=== PATIENT | male | born 1970 | race Caucasian/White ===

== ENCOUNTER 2024-01-20 08:33 | Emergency (ER) | payer OTHER, SELFPAY ==
[2024-01-20 08:42] VITALS: BP 135/81; PULSE 93; RESP 20; TEMP 36.3; O2SAT 97
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
== END 2024-01-20 09:39 | disposition home or self-care (01) ==
PROVIDERS: Emergency Provider Registered Nurse
DX: J40 Bronchitis, not specified as acute or chronic (principal); F17.210 Nicotine dependence, cigarettes, uncomplicated; J44.9 Chronic obstructive pulmonary disease, unspecified; I10 Essential (primary) hypertension
CPT/HCPCS: 99203; G0463

== ENCOUNTER 2024-03-31 09:47 | Emergency (ER) | payer OTHER, SELFPAY ==
[2024-03-31 10:00] VITALS: BP 176/88; PULSE 70; RESP 16; TEMP 36.6; O2SAT 97
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
== END 2024-03-31 10:41 | disposition home or self-care (01) ==
PROVIDERS: Emergency Provider Registered Nurse
DX: K04.7 Periapical abscess without sinus (principal); F17.210 Nicotine dependence, cigarettes, uncomplicated; J44.9 Chronic obstructive pulmonary disease, unspecified; I10 Essential (primary) hypertension
CPT/HCPCS: 99213; G0463

== ENCOUNTER 2025-08-03 08:38 | Emergency (ER) | payer OTHER, SELFPAY ==
--- OUTSIDE RECORDS SUMMARY | 2001-02-05 08:15 | XMS_ITS | Continuity of Care Document ---
Author Organization [facility] Address [address] [place] [address] [address] [place] [address] Phone Care Team Providers Care Marketing Forecaster Name Role Phone Orion Hart Unavailable Unavailable Advance Directives Directive Yes / No Effective Date File Name No Information Encounters Encounter Description Practice Location Reason(s) For Visit Diagnoses Date Provider Providers Copied on Encounter [facility], [id number] [place] [address] [address], [place], [place], [id number], [place] tel:[phone] [facility] No Information 0 [phone] 1 Tanner Sears. [address] , [address], [place], [address], [place]. tel:[phone] Family History Family Member Type Diagnosis Age At Onset No Information Payers Payer name Insurance type Covered democrat ID Authoriza nicojillian(s) Keegan Ins Complete Auto WC [id number] Social History Type Description Quantity Date Captured Comments Sex Male Smoking Status No Information Chief Complaint And Reason For Visit No Information Reason For Referral Reason For Referral No Information History Of Present Illness Encounter Date Complaint History Of Prese nt Illness No Information Functional Status Date Functional Assessmen t No Information Instructions Date Instruction Additional Infor mation No Information Assessments Type Assessment Date No Information Patient Care Teams Name Effective Dates (start - stop) Status Members No Information
--- OUTSIDE RECORDS SUMMARY | 2001-02-05 08:15 | XMS_ITS | Continuity of Care Document ---
Author Organization [facility] Address [address] [place] [address] [address] [place] [address] Phone Care Team Providers Care Learning Support Aide Name Role Phone Orion Hart Unavailable Unavailable Advance Directives Directive Yes / No Effective Date File Name No Information Encounters Encounter Description Practice Location Reason(s) For Visit Diagnoses Date Provider Providers Copied on Encounter [facility], [id number] [place] [address] [address], [place], [place], [id number], [place] tel:[phone] [facility] No Information 0 [phone] 1 Tanner Sears. [address] , [address], [place], [address], [place]. tel:[phone] Family History Family Member Type Diagnosis Age At Onset No Information Payers Payer name Insurance type Covered republican ID Authoriza nicojillian(s) Keegan Ins Complete Auto WC [id number] Social History Type Description Quantity Date Captured [...]
--- OUTSIDE RECORDS SUMMARY | 2004-09-24 19:00 | XMS_ITS | Continuity of Care Document ---
Author Organization [facility] Address [address] [place] [phone] Phone Care Team Providers Care Revenue Settlements Administrator Name Role Phone Timbo Jensen MD Unavailable Unavailable Advance Directives Directive Yes / No Effective Date File Name No Information Encounters Encounter Description Practice Location Reason(s) For Visit Diagnoses Date Provider Providers Copied on [facility] [address] [place] [address], [place], [place], [id number] tel:[phone] [address] [place] [address] Gastroenterol ogy [facility] No Information Camila Izquierdo. [address] [place] [address], [id number] , [place]. tel:[phone] Referring Provider: Glenn Wilson MD, [address] [place] [address], [address] . tel:[phone] Family History Family Member Type Diagnosis Age At Onset No Information Payers Payer name Insurance type Covered constitution party ID Authoriza tion(s) No Information Social History Type Description Quantity Date Captured [...]
--- OUTSIDE RECORDS SUMMARY | 2004-09-24 19:00 | XMS_ITS | Continuity of Care Document ---
Author Organization [facility] Address [address] [place] [phone] Phone Care Team Providers Care Chin Strap Cutter Name Role Phone Timbo Jensen MD Unavailable Unavailable Advance Directives Directive Yes / No Effective Date File Name No Information Encounters Encounter Description Practice Location Reason(s) For Visit Diagnoses Date Provider Providers Copied on [facility], [address] [place] [address], [place], [place], [id number] tel:[phone] [address] [place] [address] Gastroenterol ogy [facility] No Information Camila Izquierdo. [address] [place] [address], [id number] , [place]. tel:[phone] Referring Provider: Glenn Wilson MD, [address] [place] [address], [id number] . tel:[phone] Family History Family Member Type Diagnosis Age At Onset No Information Payers Payer name Insurance type Covered republican ID Authoriza tion(s) No Information Social History [...]
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
[2025-08-03 08:44] VITALS: BP 137/88; PULSE 98; RESP 20; TEMP 36.5; O2SAT 98
--- OUTSIDE RECORDS SUMMARY | 2025-08-03 08:49 | XMS_ITS | Encounter Summary ---
Author Organization [facility] Address [address] [place] [address] Phone Care Team Providers Care Wheat Combine Driver Name Role Phone Cristal Stauffer APRN, CNP Unavailable [phone] Cristal Stauffer APRN, CNP Primary Care Provid er Andrés Fan MD Unavailable Zohreh Woodward PAC Primary Care Pro vider Reason for Visit * Reason Comments Medication Refill Encounter Details Date Type Department Care Team (Late st Contact Info) Description 09/02/2023 Refill [facility] - Family Medicine - [address] [place] [id number] Cristal Stauffer APRN, MARIAMA [address] [phone] Medication Refill Social History Tobacco Use Types Packs/Day Years Used Date Smoking Tobacco: Every Day Cigarettes 1 41.7 Started: 11/04/1983 Smokeless Tobacco: Never Alcohol Use Standard Drinks/Week Comments Not Currently 4 (1 standard drink = 0.6 oz pur e alcohol) AUDIT-C Answer Date Recorded Frequency of Alcohol Consumption Not on file 06/09/2020 Average Number of Drinks Not on file 020 Q3: How often do you have si x or more drinks on one occasion? 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 Omeprazole Dispensed Days Supply Quantity Provider Pharmacy OME[facility]OL [facility] 20MG CAP 08/28/2023 30 30 Capsule Cristal Stauffer APRN, CNP [email or web address] documented in this encounter Plan of Treatment Not on file documented as of this encounter Visit Diagnoses Diagnosis Alcoholic cirrhosis of liver without ascites Alcoholic cirrhosis of liver documented in this encounter Additional Health Concerns Assessment Noted Time PHQ-9 Depression Total Score: 0 01/16/20 23 7:00 AM CDT documented as of this encounter Care Teams Wheat Combine Driver Relationship Specialty Start Date End Date Cristal Stauffer APRN, MARIAMA #2 [facility] [address] [place] [phone] PCP - General Advanced Practice Nurse 06/07/20 09/06/23 Zohreh Woodward PAC #2 [facility] [address] [place] [address] PCP - General Physician Copy Writer 02/05/25 Cristal Stauffer APRN, CNP #2 [facility] [address] [place] [phone] Nurse Practitioner Advanced Practice Nurse 06/06/20 03/02/24 Andrés Fan MD #[address] [phone] Consulting Physician General Surgery 12/13/21 documented as of this encounter
--- OUTSIDE RECORDS SUMMARY | 2025-08-03 08:49 | XMS_ITS | Encounter Summary ---
Author Organization [facility] Address [address] [place] [address] Phone Care Team Providers Care Digital Camera Technician Name Role Phone Cristal Stauffer APRN, CNP Unavailable +- [phone] Cristal Stauffer APRN, CNP Primary Care Provid er Andrés Fan MD Unavailable Zohreh Woodward PAC Primary Care Pro vider Reason for Visit * Reason Onset Date Comments Cough 12/19/2022 shortness of breath 12/19/2022 Encounter Details Date Type Department Care Team (Late st Contact Info) Description 12/19/2022 [facility] [address] [place] [address] Cristal Stauffer APRN, BUILDING MAINTENANCE SUPERINTENDENT #[address] [phone] Cough; shortness of breath Social History Tobacco Use Types Packs/Day Years [...] Recorded Total Score - Questions 1-9 0 07/05 Sexually Active Control Partners Comments Not Currently Female Sex and Gender Information Value Date Recorded Sex Assigned at Not on file 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 Has been wheezing and is wheezing today. Does not have inhaler-has been out of the inhalers for 4 to 5 days.. Nebulizer treatments are not helping. Used it this am and it has not helped. Caller sounds short of breath on the phone. Took nyquil this am and he started to sweat and felt better. Has whitish mucus but hard to cough up the material. When he coughs he gets a headache. Wants an appointment for tomorrow in the am at the office R: Patient/caller refuses disposition of: GO to ED now Reiterated the importance of following recommendation as symptoms could indicate a serious or life-threatening situation Patient response:He does not want to wait in the ED and does not feel like going out at this time. Will call office in am for an appointment. Reason for Disposition ??? [1] MODERATE difficulty breathing (e.g., speaks in phrases, SOB even at rest, pulse 100-120) AND [2] still present when not coughing Protocols used: COUGH - ACUTE [id number] ICE PORTER documented in this encounter Plan of Treatment Not on file documented as of this encounter Visit Diagnoses Not on filedocumented in this encounter Additional Health Concerns Assessment Noted Time PHQ-9 Depression Total Score: 0 07/14/20 21 8:25 AM CDT documented as of this encounter Care Teams Digital Camera Technician Relationship Specialty Start Date End Date Cristal Stauffer APRN, BUILDING MAINTENANCE SUPERINTENDENT #[address] [phone] PCP - General Advanced Practice Nurse 06/07/20 09/06/23 Zohreh Woodward PAC #[address] [phone] PCP - General Physician Brim Welt Sewing Machine Operator 02/05/25 Cristal Stauffer APRN, BUILDING MAINTENANCE SUPERINTENDENT #[address] [phone] Nurse Practitioner Advanced Practice Nurse 06/06/20 03/02/24 Andrés Fan MD #[address] [phone] Consulting Physician General Surgery 12/13/21 documented as of this encounter
--- OUTSIDE RECORDS SUMMARY | 2025-08-03 08:49 | XMS_ITS | Encounter Summary ---
Author Organization [facility] Address [address] [place] [address] Phone Care Team Providers Care Insole And Outsole Splitter Name Role Phone Cristal Stauffer APRN, CNP Unavailable +- [phone] Cristal Stauffer APRN, CNP Primary Care Provid er Andrés Fan MD Unavailable Zohreh Woodward PAC Primary Care Pro vider Reason for Visit * Reason Comments Medication Refill Encounter Details Date Type Department Care Team (Late st Contact Info) Description 07/04/2021 Refill [facility] - Family Medicine - [place] [address] [place] [address] Michael Zuniga APRN, RUG SCRATCHER #[address] [address] Medication Refill Social History Tobacco Use Types Packs/Day Years Used Date Smoking Tobacco: Every Day Cigarettes 1.5 36.6 Started: 11/04/1983; Last attempted to quit: 06/07/2020 Smokeless Tobacco: Never Alcohol Use Standard Drinks/Week Comments Not Currently 18 (1 standard drink = 0.6 oz pu re alcohol) AUDIT-C Answer Date Recorded Frequency of Alcohol Consumption Not on file 06/09/2020 Average Number of Drinks Not on file 020 Q3: How often do you have si x or more drinks on one occasion? 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 No / Unsure 07/05/2021 8:14 AM CDT documented as of this encounter Miscellaneous Notes * Telephone Encounter - Mary Del Angel RN - 07/05/2021 3:58 PM CDT The original prescription was reordered on 07/04/2021 by Cristal Stauffer APN, RUG SCRATCHER. documented in this encounter Plan of Treatment Not on file documented as of this encounter Visit Diagnoses Diagnosis COPD with acute exacerbation Obstructive chronic bronchitis with exacerbation documented in this encounter Additional Health Concerns Infection Onset Date Last Indicated Resolved Time COVID - 19 10/23/2021 10/23/2021 11/12/2021 12:1 6 AM SOLE TRIMMER COVID - 19 Confirmed 10/23/2021 10/23/2021 022 12:16 AM SOLE TRIMMER Assessment Noted Time PHQ-9 Depression Total Score: 0 03/20/20 21 2:13 PM CDT documented as of this encounter Care Teams Insole And Outsole Splitter Relationship Specialty Start Date End Date Cristal Stauffer APRN, RUG SCRATCHER #2 [facility] [address] [place] [address] PCP - General Advanced Practice Nurse 06/07/20 09/06/23 Zohreh Woodward PAC #2 [facility] [address] [place] [phone] PCP - General Physician Traffic Operator 02/05/25 Cristal Stauffer APRN, RUG SCRATCHER #2 [facility] [address] [place] [phone] Nurse Practitioner Advanced Practice Nurse 06/06/20 03/02/24 Andrés Fan MD #2 [facility] [address] [place] [phone] Consulting Physician General Surgery 12/13/21 documented as of this encounter
--- OUTSIDE RECORDS SUMMARY | 2025-08-03 08:49 | XMS_ITS | Encounter Summary ---
Author Organization [facility] Address [address] [place] [address] Phone Care Team Providers Care Billing Supervisor Name Role Phone Cristal Stauffer APRN, CNP Unavailable +- [phone] Cristal Stauffer APRN, CNP Primary Care Provid er Andrés Fan MD Unavailable [phone] Zohreh Woodward PAC Primary Care Pro vider Reason for Visit * Reason Comments Medication Refill Encounter Details Date Type Department Care Team (Late st Contact Info) Description 05/17/2023 Refill [facility] - Family Medicine [facility] #2 [place] [phone] Cristal Stauffer APRN, MARIAMA #[address] [phone] Medication Refill Social History Tobacco Use Types [...] on file 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 Requested Prescriptions Pending Prescriptions Disp Refills Ventolin HFA 108 (90 Base) MCG/ACT Aerosol Solution [Pharmacy Med Name: VENTOLIN HFA INH W/DOS CTR 200PUFFS] 18 g 2 Sig: INHALE 2 PUFFS BY MOUTH EVERY 4 HOURS NEEDED FOR WHEEZING OR COUGH Short Acting Inhaled Beta-Agonists Protocol Passed - 05/17/2023 8:05 AM Passed - Visit with relevant provider in past 12 months or upcoming 90 days Recent Visits Date Type Provider Dept 01/15/23 Office Visit Cristal Stauffer APRN, CNP [facility] Showing recent visits within past 365 days and meeting all other requirements Future Appointments No visits were found meeting these conditions. Showing future appointments within next 90 days and meeting all other requirements documented in this encounter Plan of Treatment Not on file documented as of this encounter Visit Diagnoses Diagnosis Simple chronic bronchitis documented in this encounter Additional Health Concerns Assessment Noted Time PHQ-9 Depression Total Score: 0 01/16/20 7:00 AM CDT documented as of this encounter Care Teams Billing Supervisor Relationship Specialty Start Date End Date Cristal Stauffer APRN, CNP [address] [phone] PCP - General Advanced Practice Nurse 06/07/20 09/06/23 Zohreh Woodward, [facility] #2 [facility] [address] [place] [phone] PCP - General Physician Deckhand Maintenance 02/05/25 Cristal Stauffer APRN, UMBRELLA REPAIRER #[address] [phone] Nurse Practitioner Advanced Practice Nurse 06/06/20 03/02/24 Andrés Fan MD #[address] [phone] Consulting Physician General Surgery 12/13/21 documented as of this encounter
--- OUTSIDE RECORDS SUMMARY | 2025-08-03 08:49 | XMS_ITS | Encounter Summary ---
Author Organization [facility] Address [address] [place] [address] Phone Care Team Providers Care Certified Medical Dosimetrist Name Role Phone Cristal Stauffer APRN, CNP Unavailable [phone]- [phone] Cristal Stauffer APRN, CNP Primary Care Provid er Andrés Fan MD Unavailable [phone] Zohreh Woodward PAC Primary Care Pro vider Reason for Visit * Reason Comments Medication Refill Encounter Details Date Type Department Care Team (Late st Contact Info) Description 12/22/2022 Refill [facility] Medical Group - Family Medicine - [place] [address] [place] [phone] Cristal Stauffer APRN, MARIAMA #[address] [phone] Medication Refill Social History Tobacco Use Types [...] on file 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 Requested Prescriptions Pending Prescriptions Disp Refills sildenafil citrate (VIAGRA) 100 MG Tablet [Pharmacy Med Name: Sildenafil Citrate 100 MG Oral Tablet] 30 Tablet 0 Sig: TAKE 1 TABLET BY MOUTH NEEDED FOR ERECTILE DYSFUNCTION Erectile Dysfunction Medication Protocol Failed - 12/22/2022 2:03 PM Failed - Erectile dysfunction on problem list Passed - Visit with relevant provider in past 12 months or upcoming 90 days Recent Visits Date Type Provider Dept 01/17/22 Office Visit Cristal Stauffer APRN, CNP [facility] Showing recent visits within past 365 days and meeting all other requirements Future Appointments Date Type Provider Dept 01/14/23 Appointment Cristal Stauffer APRN, CNP [facility] Showing future appointments within next 90 days and meeting all other requirements Passed - Absence of nitrates on med list CLAMPER documented in this encounter Plan of Treatment Not on file documented as of this encounter Visit Diagnoses Diagnosis Erectile dysfunction, unspecified erectile dysfunction type documented in this encounter Additional Health Concerns Assessment Noted Time PHQ-9 Depression Total Score: 0 07/14/20 21 8:25 AM CDT documented as of this encounter Care Teams Certified Medical Dosimetrist Relationship Specialty Start Date End Date Cristal Stauffer APRN, CNP #[address] [phone] PCP - General Advanced Practice Nurse 06/07/20 09/06/23 Zohreh Woodward PAC #[address] [phone] PCP - General Physician Cnc Set Up Operator 02/05/25 Cristal Stauffer APRN, CHEF KITCHEN MANAGER #[address] [phone] Nurse Practitioner Advanced Practice Nurse 06/06/20 03/02/24 Andrés Fan MD #[address] [phone] Consulting Physician General Surgery 12/13/21 documented as of this encounter
--- OUTSIDE RECORDS SUMMARY | 2025-08-03 08:49 | XMS_ITS | Encounter Summary ---
Author Organization [facility] Address [address] [place] [address] Phone Care Team Providers Care Saddle Stitcher Name Role Phone Cristal Stauffer APRN, CNP Unavailable [phone]- [phone] Cristal Stauffer APRN, CNP Primary Care Provid er Andrés Fan MD Unavailable Zohreh Woodward PAC Primary Care Pro vider Reason for Visit * Reason Comments Medication Refill Encounter Details Date Type Department Care Team (Late st Contact Info) Description 08/14/2021 Refill [facility] - Family Medicine - [place] #2 [place] [phone] Cristal Stauffer APRN, MARIAMA #[address] [phone] Medication Refill Social History Tobacco Use Types [...] on file 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 No / Unsure 08/07/2021 10:29 AM CDT documented as of this encounter Miscellaneous Notes * Telephone Encounter - Mary Del Angel RN - 08/14/2021 11:48 AM CDT Name from pharmacy: VITAMIN B-1 100MG TABLETS Will file in chart as: Thiamine Mononitrate (B1) 100 MG Tablet The original prescription was reordered on 08/07/2021 by Cristal Stauffer APN, CNP documented in this encounter Plan of Treatment Not on file documented as of this encounter Visit Diagnoses Diagnosis Alcoholic cirrhosis of liver without ascites Alcoholic cirrhosis of liver documented in this encounter Additional Health Concerns Infection Onset Date Last Indicated Resolved Time COVID - 19 10/23/2021 10/23/2021 11/12/2021 12:1 6 AM CLOTHES SHAKER COVID - 19 Confirmed 10/23/2021 10/23/2021 022 12:16 AM CLOTHES SHAKER Assessment Noted Time PHQ-9 Depression Total Score: 0 07/14/20 21 8:25 AM CDT documented as of this encounter Care Teams Saddle Stitcher Relationship Specialty Start Date End Date Cristal Stauffer APRN, CNP #[address] [phone] PCP - General Advanced Practice Nurse 06/07/20 09/06/23 Zohreh Woodward, [place] #2 [facility] [address] [place] [address] PCP - General Physician Linux Admin Engineer 02/05/25 Cristal Stauffer APRN, CERTIFIED PHLEBOTOMIST #2 [facility] [address] [place] [address] Nurse Practitioner Advanced Practice Nurse 06/06/20 03/02/24 Andrés Fan MD #2 [facility] [address] [place] [phone] Consulting Physician General Surgery 12/13/21 documented as of this encounter
--- OUTSIDE RECORDS SUMMARY | 2025-08-03 08:49 | XMS_ITS | Encounter Summary ---
Author Organization [facility] Address [address] [place] [address] Phone Care Team Providers Care Consumer Lending Manager Name Role Phone Cristal Stauffer APRN, CNP Unavailable +- [phone] Cristal Stauffer APRN, CNP Primary Care Provid er Andrés Fan MD Unavailable Zohreh Woodward PAC Primary Care Pro vider Reason for Visit * Reason Comments Medication Refill Encounter Details Date Type Department Care Team (Late st Contact Info) Description 12/03/2022 Refill [facility] - Family Medicine - [place] #2 [place] [phone] Cristal Stauffer APRN, MARIAMA #[address] [phone] Medication Refill Social History Tobacco Use Types [...] on file 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 Requested Prescriptions Pending Prescriptions Disp Refills folic acid (FOLVITE) 1 MG Tablet [Pharmacy Med Name: FOLIC ACID 1MG TABLETS] 90 Tablet 3 Sig: TAKE 1 TABLET BY MOUTH DAILY Folic Acid Protocol Passed - 12/03/2022 11:49 AM Passed - Visit with relevant provider in past 12 months or upcoming 90 days Recent Visits Date Type Provider Dept 01/17/22 Office Visit Cristal Stauffer APRN, MARIAMA [facility] Showing recent visits within past 365 days and meeting all other requirements Future Appointments Date Type Provider Dept 01/14/23 Appointment Cristal Stauffer APRN, MARIAMA [facility] Showing future appointments within next 90 days and meeting all other requirements Dulera 200-5 MCG/ACT Aerosol [Pharmacy Med Name: DULERA 200-5MCG ORAL INHALER 120INH] 13 g 5 Sig: INHALE 2 PUFFS BY MOUTH TWICE DAILY Inhaled Combinations Protocol Passed - 12/03/2022 11:49 AM Passed - Visit with relevant provider in past 12 months or upcoming 90 days Recent Visits Date Type Provider Dept 01/17/22 Office Visit Cristal Stauffer APRN, MARIAMA [facility] Showing recent visits within past 365 days and meeting all other requirements Future Appointments Date Type Provider Dept 01/14/23 Appointment Cristal Stauffer APRN, MARIAMA [facility] Showing future appointments within next 90 days and meeting all other requirements Passed - Active short-acting beta agonist prescription CUTTER documented in this encounter Plan of Treatment Not on file documented as of this encounter Visit Diagnoses Diagnosis Alcoholic cirrhosis of liver without ascites Alcoholic cirrhosis of liver Chronic obstructive pulmonary disease, unspecified COPD type documented in this encounter Additional Health Concerns Assessment Noted Time PHQ-9 Depression Total Score: 0 07/14/20 21 8:25 AM CDT documented as of this encounter Care Teams Consumer Lending Manager Relationship Specialty Start Date End Date Cristal Stauffer APRN, KETTLE LOADER #2 [facility] [address] [place] [address] PCP - General Advanced Practice Nurse 06/07/20 09/06/23 Zohreh Woodward PAC #[address] [address] PCP - General Physician Radon Inspector 02/05/25 Cristal Stauffer APRN, KETTLE LOADER #[address] [address] Nurse Practitioner Advanced Practice Nurse 06/06/20 03/02/24 Andrés Fan MD #[address] [phone] Consulting Physician General Surgery 12/13/21 documented as of this encounter
--- OUTSIDE RECORDS SUMMARY | 2025-08-03 08:49 | XMS_ITS | Encounter Summary ---
Author Organization [facility] Address [address] [place] [address] Phone Care Team Providers Care Carpet Renovator Name Role Phone Cristal Stauffer APRN, CNP Unavailable +- [phone] Cristal Stauffer APRN, CNP Primary Care Provid er Andrés Fan MD Unavailable Zohreh Woodward PAC Primary Care Pro vider Reason for Visit * Reason Comments Medication Refill Encounter Details Date Type Department Care Team (Late st Contact Info) Description 02/20/2023 Refill [facility] - Family Medicine - [place] #2 [place] [phone] Cristal Stauffer APRN, MARIAMA #[address] [phone] Medication Refill Social History Tobacco Use Types [...] on file 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 Requested Prescriptions Pending Prescriptions Disp Refills omeprazole (PriLOSEC) 20 MG CAPSULE DELAYED RELEASE [Pharmacy Med Name: OMEPRAZOLE 20MG CAPSULES] 90 Capsule 1 Sig: TAKE 1 CAPSULE BY MOUTH DAILY Proton Pump Inhibitors Protocol Passed - 02/20/2023 4:21 PM Passed - Visit with relevant provider in past 12 months or upcoming 90 days Recent Visits Date Type Provider Dept 01/15/23 Office Visit Cristal Stauffer APRN, MARIAMA [facility] Showing recent visits within past 365 days and meeting all other requirements Future Appointments Date Type Provider Dept 02/22/23 Appointment Cristal Stauffer APRN, CNP [facility] Showing future appointments within next 90 days and meeting all other requirements losartan (COZAAR) 50 MG Tablet 90 Tablet 1 Sig: Take 1 Tablet by mouth daily. There is no refill protocol information for this order documented in this encounter Plan of Treatment Not on file documented as of this encounter Visit Diagnoses Diagnosis Alcoholic cirrhosis of liver without ascites Alcoholic cirrhosis of liver Essential hypertension Unspecified essential hypertension documented in this encounter Additional Health Concerns Assessment Noted Time PHQ-9 Depression Total Score: 0 01/16/20 7:00 AM CDT documented as of this encounter Care Teams Carpet Renovator Relationship Specialty Start Date End Date Cristal Stauffer APRN, MARIAMA #[address] [phone] PCP - General Advanced Practice Nurse 06/07/20 09/06/23 Zohreh Woodward PAC #2 [facility] [address] [place] [phone] PCP - General Physician Land Acquisition Manager 02/05/25 Cristal Stauffer APRN, MAPLE PRODUCTS MAKER #2 [facility] [address] [place] [phone] Nurse Practitioner Advanced Practice Nurse 06/06/20 03/02/24 Andrés Fan MD #2 [facility] [address] [place] [address] Consulting Physician General Surgery 12/13/21 documented as of this encounter
--- OUTSIDE RECORDS SUMMARY | 2025-08-03 08:49 | XMS_ITS | Encounter Summary ---
Author Organization [facility] Address [address] 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 EXHAUST EMISSIONS INSPECTOR Gender Identity Not on file Sexual Orientation Not on file documented as of this encounter Plan of Treatment Not on file documented as of this encounter Visit Diagnoses Diagnosis Dyspnea on exertion Other dyspnea and respiratory abnormality documented in this encounter Additional Health Concerns Assessment Noted Time PHQ-9 Depression Total Score: 0 01/16/20 23 7:00 AM CDT documented as of this encounter Care Teams Apparel Trimmings Sales Representative Relationship Specialty Start Date End Date Zohreh Woodward PAC #[address] [phone] PCP - General Physician Frame Welder Cargo Utility Trailers 02/05/25 Andrés Fan MD #[address] [phone] Consulting Physician General Surgery 12/13/21 documented as of this encounter
--- OUTSIDE RECORDS SUMMARY | 2025-08-03 08:49 | XMS_ITS | Encounter Summary ---
Author Organization [facility] Address [address] [place] [address] Phone Care Team Providers Care Clinical Genetics Laboratory Chief Name Role Phone Cristal Stauffer APRN, CNP Unavailable +- [phone] Crisatl Stauffer APRN, CNP Primary Care Provid er Andrés Fan MD Unavailable Zohreh Woodward PAC Primary Care Pro vider Reason for Visit * Reason Comments Medication Refill Encounter Details Date Type Department Care Team (Late st Contact Info) Description 08/14/2021 Refill [facility] - Family Medicine - [place] [address]2 [place] [phone] Cristal Stauffer APRN, MARIAMA [address] [phone] Medication Refill Social History Tobacco Use Types [...] on file 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 No / Unsure 08/07/2021 10:29 AM CDT documented as of this encounter Miscellaneous Notes * Telephone Encounter - Mary Del Angel RN - 08/14/2021 1:18 PM CDT Name from pharmacy: VITAMIN B-1 100MG [...] 19 10/23/2021 10/23/2021 11/12/2021 12:1 6 AM REFRIGERATOR ASSEMBLER COVID - 19 Confirmed 10/23/2021 10/23/2021 022 12:16 AM REFRIGERATOR ASSEMBLER Assessment Noted Time PHQ-9 Depression Total Score: 0 07/14/20 21 8:25 AM CDT documented as of this encounter Care Teams Clinical Genetics Laboratory Chief Relationship Specialty Start Date End Date Cristal Stauffer APRN, CNP [address] [address] PCP - General Advanced Practice Nurse 06/07/20 09/06/23 Zohreh Woodward, ELIDA #2 [facility] [address] [place] [address] PCP - General Physician Sales Property Manager 02/05/25 Cristal Stauffer APRN, VISUAL AND STOCK ASSOCIATE #2 [facility] [address] [place] [address] Nurse Practitioner Advanced Practice Nurse 06/06/20 03/02/24 Andrés Fan MD #2 [facility] [address] [place] [phone] Consulting Physician General Surgery 12/13/21 documented as of this encounter
--- OUTSIDE RECORDS SUMMARY | 2025-08-03 08:50 | XMS_ITS | Encounter Summary ---
Author Organization [facility] Address [address] [place] [address] Phone Care Team Providers Care Reference Archivist Name Role Phone Cristal Stauffer APRN, CNP Unavailable +- [phone] Cristal Stauffer APRN, CNP Primary Care Provid er Andrés Fan MD Unavailable Zohreh Woodward PAC Primary Care Pro vider Reason for Visit * Reason Comments Medication Refill Encounter Details Date Type Department Care Team (Late st Contact Info) Description 06/06/2022 Refill [facility] - Family Medicine [facility] [address]2 [place] [phone] Cristal Stauffer APRN, MARIAMA #[address] [phone] Medication Refill Social History Tobacco Use Types [...] on file Legal Sex Male 3:28 AM RN WOUND Gender Identity Not on file Sexual Orientation Not on file documented as of this encounter Miscellaneous Notes * Telephone Encounter - Swati Montenegro RN - 06/07/2022 10:48 AM CDT Medication failed the protocol, provider to review and approve the medication order if appropriate. Requested Prescriptions Pending Prescriptions Disp Refills sildenafil citrate (VIAGRA) 100 MG Tablet [Pharmacy Med Name: Sildenafil Citrate 100 MG Oral Tablet] 30 Tablet 0 Sig: Take 1 Tablet by mouth as needed for Erectile Dysfunction. Erectile Dysfunction Medication Protocol Failed - 06/06/2022 5:06 PM Failed - Erectile dysfunction on problem list Passed - Visit with relevant provider in past 12 months or upcoming 90 days Recent Visits Date Type Provider Dept 01/17/22 Office Visit Cristal Stauffer APRN, MARIAMA [facility] 11/13/21 Office Visit Cristal Stauffer APRN, MARIAMA [facility] 10/13/21 Office Visit Cristal Stauffer APRN, CORE PASTER [facility] 09/05/21 Office Visit Cristal Stauffer APRN, CORE PASTER [facility] 08/22/21 Office Visit Cristal Stauffer APRN, CORE PASTER [facility] 08/07/21 Office Visit Cristal Stauffer APRN, CORE PASTER [facility] 07/14/21 Office Visit Cristal Stauffer APRN, CORE PASTER [facility] 07/04/21 Office Visit Cristal Stauffer APRN, CORE PASTER [facility] 06/15/21 Telemedicine Michael Zuniga APRN, CORE PASTER [facility] Showing recent visits within past 365 days and meeting all other requirements Future Appointments Date Type Provider Dept 07/18/22 Appointment Cristal Stauffer APRN, MARIAMA [facility] Showing future appointments within next 90 days and meeting all other requirements Passed - Absence of nitrates on med list documented in this encounter Plan of Treatment Not on file documented as of this encounter Visit Diagnoses Diagnosis Erectile dysfunction, unspecified erectile dysfunction type documented in this encounter Additional Health Concerns Assessment Noted Time PHQ-9 Depression Total Score: 0 07/14/20 21 8:25 AM CDT documented as of this encounter Care Teams Reference Archivist Relationship Specialty Start Date End Date Cristal Stauffer APRN, MARIAMA #[address] [address] PCP - General Advanced Practice Nurse 06/07/20 09/06/23 Zohreh Woodward PAC #[address] [address] PCP - General Physician Elementary School Reading Teacher 02/05/25 Cristal Stauffer APRN, CNP #[address] [address] Nurse Practitioner Advanced Practice Nurse 06/06/20 03/02/24 Andrés Fan MD #[address] [address] Consulting Physician General Surgery 12/13/21 documented as of this encounter
--- OUTSIDE RECORDS SUMMARY | 2025-08-03 08:50 | XMS_ITS | Encounter Summary ---
Author Organization [facility] Address [address] [place] [address] Phone Care Team Providers Care Motorcycle Engine Assembler Name Role Phone Cristal Stauffer APRN, CNP Unavailable +- [phone] Cristal Stauffer APRN, CNP Primary Care Provid er Andrés Fan MD Unavailable Zohreh Woodward PAC Primary Care Pro vider Reason for Visit * Reason Comments Medication Refill Encounter Details Date Type Department Care Team (Late st Contact Info) Description 11/21/2022 Refill [facility] - Family Medicine - [place] [address]2 [place] [phone] Cristal Stauffer APRN, MARIAMA #[address] [phone] Medication Refill Social History Tobacco Use Types [...] on file 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 Requested Prescriptions Pending Prescriptions Disp Refills albuterol (PROVENTIL, VENTOLIN) (2.5 MG/3ML) 0.083% Nebulizer Soln [Pharmacy Med Name: ALBUTEROL 0.083%(2.5MG/3ML) 30X3ML] 90 mL 2 Sig: USE 3 ML VIA NEBULIZER EVERY 4 HOURS NEEDED FOR WHEEZING OR SHORTNESS OF BREATH Short Acting Inhaled Beta-Agonists Protocol Passed - 11/21/2022 3:34 PM Passed - Visit with relevant provider [...] 90 days and meeting all other requirements GE SCREEN OPERATOR documented in this encounter Plan of Treatment Not on file documented as of this encounter Visit Diagnoses Diagnosis Simple chronic bronchitis documented in this encounter Additional Health Concerns Assessment Noted Time PHQ-9 Depression Total Score: 0 07/14/20 21 8:25 AM CDT documented as of this encounter Care Teams Motorcycle Engine Assembler Relationship Specialty Start Date End Date Cristal Stauffer APRN, CNP #[address] [phone] PCP - General Advanced Practice Nurse 06/07/20 09/06/23 Zohreh Woodward PAC #[address] [phone] PCP - General Physician Safety Counselor 02/05/25 Cristal Stauffer, JACOB, QUANTITATIVE EQUITY HEAD #[address] [phone] Nurse Practitioner Advanced Practice Nurse 06/06/20 03/02/24 Andrés Fan MD #[address] [phone] Consulting Physician General Surgery 12/13/21 documented as of this encounter
--- OUTSIDE RECORDS SUMMARY | 2025-08-03 08:50 | XMS_ITS | Encounter Summary ---
Author Organization [facility] Address [address] [place] [address] Phone Care Team Providers Care Machine Tech Name Role Phone Cristal Stauffer APRN, CNP Unavailable +- [phone] Cristal Stauffer APRN, CNP Primary Care Provid er Andrés Fan MD Unavailable [phone] Zohreh Woodward PAC Primary Care Pro vider Reason for Visit * Reason Comments Medication Refill Encounter Details Date Type Department Care Team (Late st Contact Info) Description 01/26/2022 Refill [facility] - Family Medicine [facility] #2 [place] [phone] Cristal Stauffer APRN, MARIAMA #[address] [phone] Medication Refill Social History Tobacco Use Types [...] on file 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 No / Unsure 01/17/2022 10:42 AM CDT documented as of this encounter Miscellaneous Notes * Telephone Encounter - Mary Del Angel RN - 01/26/2022 1:16 PM CDT Dulera 200-5 MCG/ACT Aerosol 13 g 5 01/25/2022 Sig: INHALE 2 PUFFS BY MOUTH TWICE DAILY Sent to pharmacy as: Dulera 200-5 MCG/ACT Inhalation Aerosol (Mometasone Furo- Formoterol Fum) Class: E Prescribe E-Prescribing Status: Receipt confirmed by pharmacy (01/25/2022 ??4:02 PM CDT) Order Questions ?? Dulera 200-5 MCG/ACT Aerosol [[id number]] 1601 Status: Active Ordering user: Mayelin Kc PAC 01/25/22 1601 Authorized by: Mayelin Kc PAC Frequency: ??01/25/22 - Until Discontinued Released by: Mayelin Kc PAC 01/25/22 1601 Diagnoses Chronic obstructive pulmonary disease, unspecified COPD type (HCC) [J44.9] Associated Diagnoses Chronic obstructive pulmonary disease, unspecified COPD type (HCC) Pharmacy [id number] - [place] [address] AT [facility] documented in this encounter Plan of Treatment Not on file documented as of this encounter Visit Diagnoses Diagnosis Chronic obstructive pulmonary disease, unspecified COPD type documented in this encounter Additional Health Concerns Assessment Noted Time PHQ-9 Depression Total Score: 0 07/14/20 21 8:25 AM CDT documented as of this encounter Care Teams Machine Tech Relationship Specialty Start Date End Date Cristal Stauffer APRN, MARIAMA #[address] [address] PCP - General Advanced Practice Nurse 06/07/20 09/06/23 Zohreh Woodward PAC #[address] [phone] PCP - General Physician Lead Military Analyst 02/05/25 Cristal Stauffer APRN, MARIAMA #[address] [address] Nurse Practitioner Advanced Practice Nurse 06/06/20 03/02/24 Andrés Fan MD #[address] [phone] Consulting Physician General Surgery 12/13/21 documented as of this encounter
--- OUTSIDE RECORDS SUMMARY | 2025-08-03 08:50 | XMS_ITS | Encounter Summary ---
Author Organization [facility] Address [address] [place] [address] Phone Care Team Providers Care Plastic Production Machine Setter Name Role Phone Cristal Stauffer APRN, CNP Unavailable +- [phone] Cristal Stauffer APRN, CNP Primary Care Provid er Andrés Fan MD Unavailable [phone] Zohreh Woodward PAC Primary Care Pro vider Reason for Visit * Reason Comments Medication Refill Encounter Details Date Type Department Care Team (Late st Contact Info) Description 10/18/2021 Refill [facility] - Pulmonology & Sleep Medicine [facility] #2 [place] [phone] Ash Grajeda MD #2 [place] [address] Medication Refill Social History Tobacco Use Types [...] on file Legal Sex Male 3:28 AM TIEDOWN OPERATOR Gender Identity Not on file Sexual Orientation Not on file COVID-19 Exposure Response Date Recorded In the last month, have you been in contact with someone who was confirmed or suspected to have Coronavirus / COVID-19? Yes 10/20/2021 1:57 PM TIEDOWN OPERATOR documented as of this encounter Miscellaneous Notes * Telephone Encounter - Lore Stovall RN - 10/18/2021 10:12 AM TIEDOWN OPERATOR Patient needs an appointment OWN OPERATOR documented in this encounter Plan of Treatment Not on file documented as of this encounter Visit Diagnoses Diagnosis Chronic obstructive pulmonary disease, unspecified COPD type documented in this encounter Additional Health Concerns Infection Onset Date Last Indicated Resolved Time COVID - 19 10/23/2021 10/23/2021 11/12/2021 12:1 6 AM TIEDOWN OPERATOR COVID - 19 Confirmed 10/23/2021 10/23/2021 022 12:16 AM TIEDOWN OPERATOR Assessment Noted Time PHQ-9 Depression Total Score: 0 07/14/20 21 8:25 AM CDT documented as of this encounter Care Teams Plastic Production Machine Setter Relationship Specialty Start Date End Date Cristal Stauffer APRN, RATING OFFICER #2 [facility] [address] [place] [address] PCP - General Advanced Practice Nurse 06/07/20 09/06/23 Zohreh Woodward PAC #2 [facility] [address] [place] [address] PCP - General Physician Emergency Medicine Nurse Practitioner 02/05/25 Cristal Stauffer APRN, RATING OFFICER #2 [facility] [address] [place] [address] Nurse Practitioner Advanced Practice Nurse 06/06/20 03/02/24 Andrés Fan MD #2 [facility] [address] [place] [address] Consulting Physician General Surgery 12/13/21 documented as of this encounter
--- OUTSIDE RECORDS SUMMARY | 2025-08-03 08:50 | XMS_ITS | Encounter Summary ---
Author Organization [facility] Address [address] [place] [address] Phone Care Team Providers Care Fish Checker Name Role Phone Cristal Stauffer APRN, CNP Unavailable +- [phone] Cristal Stauffer APRN, CNP Primary Care Provid er Andrés Fan MD Unavailable [phone] Zohreh Woodward PAC Primary Care Pro vider Reason for Visit * Reason Onset Date Comments Medication Refill 09/01/2020 Encounter Details Date Type Department Care Team (Late st Contact Info) Description 09/01/2020 Refill [facility] [address] [place] [address] Cristal Stauffer APRN, TEA TREE FARM WORKER #[address] [phone] Medication Refill Social History Tobacco Use Types Packs/Day Years Used Date Smoking Tobacco: Former Cigarettes 1.5 36.6 0 11/04/1983 - 06/07/2020 Smokeless Tobacco: Never Comments:has nicotine patch Alcohol Use Standard Drinks/Week Comments Not Currently 16 (1 standard drink = 0.6 oz pure alcohol) quit drinking 30 days ago-07/06/20 (heavy drinker in past) AUDIT-C Answer Date Recorded Frequency of Alcohol Consumption Not on file 06/09/2020 Average Number of Drinks Not on file 020 Q3: How often do you have si x or more drinks on one occasion? Daily or almost daily 06/09/2020 PHQ-2 Answer Date Recorded PHQ-2 Score 0 08/03/2020 Sexually Active Control Partners Comments Not Currently Female Sex and Gender Information Value Date Recorded Sex Assigned at Not on file Legal Sex Male 3:28 AM FLUID JET CUTTER OPERATOR Gender Identity Not on file Sexual Orientation Not on file COVID-19 Exposure Response Date Recorded In the last month, have you been in contact with someone who was confirmed or suspected to have Coronavirus / COVID-19? No / Unsure 08/15/2020 9:49 AM CDT documented as of this encounter Miscellaneous Notes * Telephone Encounter - Jessica Strauss RN - 09/01/2020 9:33 AM CDT Patient calling to request a refill on his Prozac States that we recently increased him from 10 mg to 20 mg Currently has 3 pills left Will pend for approval Thank you documented in this encounter Plan of Treatment Not on file documented as of this encounter Visit Diagnoses Not on filedocumented in this encounter Additional Health Concerns Infection Onset Date Last Indicated Resolved Time COVID - 19 12/02/2020 12/02/2020 12/03/2020 8:41 AM FLUID JET CUTTER OPERATOR COVID - 19 06/02/2021 06/02/2021 06/07/2021 9:19 AM CDT COVID - 19 06/07/2021 06/07/2021 06/09/2021 8:01 AM CDT COVID - 19 10/23/2021 10/23/2021 11/12/2021 12:1 6 AM FLUID JET CUTTER OPERATOR COVID - 19 Confirmed 10/23/2021 10/23/2021 022 12:16 AM FLUID JET CUTTER OPERATOR Assessment Noted Time PHQ-9 Depression Total Score: 0 08/03/20 20 11:00 AM CDT documented as of this encounter Care Teams Fish Checker Relationship Specialty Start Date End Date Cristal Stauffer, MEDICAL DIRECTOR/HEAD TEAM PHYSICIAN, TEA TREE FARM WORKER #[address] [phone] PCP - General Advanced Practice Nurse 06/07/20 09/06/23 Zohreh Woodward PAC #[address] [address] PCP - General Physician Heel Dipper 02/05/25 Cristal Stauffer APRN, TEA TREE FARM WORKER #[address] [address] Nurse Practitioner Advanced Practice Nurse 06/06/20 03/02/24 Andrés Fan MD #[address] [phone] Consulting Physician General Surgery 12/13/21 documented as of this encounter
--- OUTSIDE RECORDS SUMMARY | 2025-08-03 08:50 | XMS_ITS | Encounter Summary ---
Author Organization [facility] Address [address] [place] [address] Phone Care Team Providers Care Mineral Wool Insulation Supervisor Name Role Phone Cristal Stauffer APRN, CNP Unavailable +- [phone] Cristal Stauffer APRN, CNP Primary Care Provid er Andrés Fan MD Unavailable Zohreh Woodward PAC Primary Care Pro vider Reason for Visit * Reason Comments Medication Refill Encounter Details Date Type Department Care Team (Late st Contact Info) Description 09/09/2021 Refill [facility] - Family Medicine - [place] #2 [place] [phone] Cristal Stauffer APRN, MARIAMA #[address] [phone] Medication Refill Social History Tobacco Use Types [...] on file Legal Sex Male 3:28 AM SKEIN MERCERIZING MACHINE OPERATOR Gender Identity Not on file Sexual Orientation Not on file COVID-19 Exposure Response Date Recorded In the last month, have you been in contact with someone who was confirmed or suspected to have Coronavirus / COVID-19? No / Unsure 09/05/2021 10:08 AM CDT documented as of this encounter Miscellaneous Notes * Telephone Encounter - Mary Del Angel RN - 09/11/2021 10:01 AM CST New Rx 08/07/21 Per nursing clinical judgement, provider to review and approve the medication(s) order(s) if appropriate. Requested Prescriptions Pending Prescriptions Disp Refills Mometasone Furo-Formoterol Fum 200-5 MCG/ACT Aerosol 13 g 1 Sig: take 2 Puffs by inhalation 2 times daily. Inhaled Combinations Protocol Passed - 09/11/2021 10:01 AM Passed - Visit with relevant provider in past 12 months or upcoming 90 days Recent Visits Date Type Provider Dept 09/05/21 Office Visit Cristal Stauffer APRN, MARIAMA [facility] 08/22/21 Office Visit Cristal Stauffer APRN, MARIAMA [facility] 08/07/21 Office Visit Cristal Stauffer APRN, MARIAMA [facility] 07/14/21 Office Visit Cristal Stauffer APRN, MARIAMA [facility] 07/04/21 Office Visit Cristal Stauffer APRN, MARIAMA [facility] 06/15/21 Telemedicine Michael Zuniga APRN, MARIAMA [facility] 03/20/21 Office Visit Cristal Stauffer APRN, MARIAMA [facility] 01/04/21 Office Visit Strohbeck, JACOB Bee CNP [facility] 11/23/20 Office Visit Cristal Stauffer APRN, CNP [facility] 10/12/20 Office Visit Cristal Stauffer APRN, CNP [facility] Showing recent visits within past 365 days and meeting all other requirements Future Appointments Date Type Provider Dept 10/13/21 Appointment Cristal Stauffer APRN, CNP [facility] Showing future appointments within next 90 days and meeting all other requirements Passed - Active short-acting beta agonist prescription N MERCERIZING MACHINE OPERATOR documented in this encounter Plan of Treatment Not on file documented as of this encounter Visit Diagnoses Diagnosis Chronic obstructive pulmonary disease, unspecified COPD type documented in this encounter Additional Health Concerns Infection Onset Date Last Indicated Resolved Time COVID - 19 10/23/2021 10/23/2021 11/12/2021 12:1 6 AM SKEIN MERCERIZING MACHINE OPERATOR COVID - 19 Confirmed 10/23/2021 10/23/2021 022 12:16 AM SKEIN MERCERIZING MACHINE OPERATOR Assessment Noted Time PHQ-9 Depression Total Score: 0 07/14/20 21 8:25 AM CDT documented as of this encounter Care Teams Mineral Wool Insulation Supervisor Relationship Specialty Start Date End Date Cristal Stauffer APRN, CNP #[address] [address] PCP - General Advanced Practice Nurse 06/07/20 09/06/23 Zohreh Woodward PAC #[address] [address] PCP - General Physician Account Support Rep 02/05/25 Cristal Stauffer APRN, CNP #[address] [address] Nurse Practitioner Advanced Practice Nurse 06/06/20 03/02/24 Andrés Fan MD #[address] [address] Consulting Physician General Surgery 12/13/21 documented as of this encounter
--- OUTSIDE RECORDS SUMMARY | 2025-08-03 08:50 | XMS_ITS | Encounter Summary ---
Author Organization [facility] Address [address] [place] [address] Phone Care Team Providers Care Social Work Faculty Member Name Role Phone Cristal Stauffer APRN, CNP Unavailable [phone]- [phone] Cristal Stauffer APRN, CNP Primary Care Provid er Andrés Fan MD Unavailable Zohreh Woodward PAC Primary Care Pro vider Reason for Visit * Reason Comments Medication Refill Encounter Details Date Type Department Care Team (Late st Contact Info) Description 11/12/2021 Refill [facility] - Family Medicine - [place] #2 [place] [phone] Cristal Stauffer APRN, MARIAMA #[address] [phone] Medication Refill Social History Tobacco Use Types [...] on file Legal Sex Male 3:28 AM ASSOCIATE PROFESSOR OF LITERATURE Gender Identity Not on file Sexual Orientation Not on file COVID-19 Exposure Response Date Recorded In the last month, have you been in contact with someone who was confirmed or suspected to have Coronavirus / COVID-19? No / Unsure 11/13/2021 11:13 AM ASSOCIATE PROFESSOR OF LITERATURE documented as of this encounter Miscellaneous Notes * Telephone Encounter - Mary Del Angel RN - 11/13/2021 11:52 AM CST Name from pharmacy: LISINOPRIL 20MG TABLETS Will file in chart as: lisinopril (PRINIVIL, ZESTRIL) 20 MG Tablet The original prescription was discontinued on 08/22/2021 by Cristal Stauffer APRN, CNP for the following reason: Side effects. CIATE PROFESSOR OF LITERATURE documented in this encounter Plan of Treatment Not on file documented as of this encounter Visit Diagnoses Diagnosis Essential hypertension Unspecified essential hypertension documented in this encounter Additional Health Concerns Infection Onset Date Last Indicated Resolved Time COVID - 19 10/23/2021 10/23/2021 11/12/2021 12:1 6 AM ASSOCIATE PROFESSOR OF LITERATURE COVID - 19 Confirmed 10/23/2021 10/23/2021 022 12:16 AM ASSOCIATE PROFESSOR OF LITERATURE Assessment Noted Time PHQ-9 Depression Total Score: 0 07/14/20 21 8:25 AM CDT documented as of this encounter Care Teams Social Work Faculty Member Relationship Specialty Start Date End Date Cristal Stauffer APRN, CNP #[address] [phone] PCP - General Advanced Practice Nurse 06/07/20 09/06/23 Zohreh Woodward, ELIDA #2 [facility] [address] [place] [address] PCP - General Physician Certified Court Interpreter 02/05/25 Cristal Stauffer APRN, CONTROL CHEMIST #[address] [address] Nurse Practitioner Advanced Practice Nurse 06/06/20 03/02/24 Andrés Fan MD #[address] [phone] Consulting Physician General Surgery 12/13/21 documented as of this encounter
--- OUTSIDE RECORDS SUMMARY | 2025-08-03 08:50 | XMS_ITS | Encounter Summary ---
Author Organization [facility] Address [address] [place] [address] Phone Care Team Providers Care Engine Cleaner Name Role Phone Cristal Stauffer APRN, CNP Unavailable [phone]- [phone] Cristal Stauffer APRN, CNP Primary Care Provid er Andrés Fan MD Unavailable [phone] Zohreh Woodward PAC Primary Care Pro vider Reason for Visit * Reason Comments Medication Refill Encounter Details Date Type Department Care Team (Late st Contact Info) Description 06/14/2022 Refill [facility] - Family Medicine [facility] [address] [place] [phone] Cristal Stauffer APRN, MARIAMA [address] [phone] Medication Refill Social History Tobacco Use Types [...] on file Legal Sex Male 3:28 AM OCCUPATIONAL HEALTH AND SAFETY ADVISER Gender Identity Not on file Sexual Orientation Not on file documented as of this encounter Miscellaneous Notes * Telephone Encounter - Nora David RN - 06/15/2022 9:43 AM CDT Medication failed the protocol, provider to review and approve the medication order if appropriate. Last OV 01/17/22 Last Rx 01/18/22 Most recently refilled at pharm 05/16/22 Requested Prescriptions Pending Prescriptions Disp Refills albuterol (PROVENTIL, VENTOLIN) (2.5 MG/3ML) 0.083% Nebulizer Soln [Pharmacy Med Name: ALBUTEROL 0.083%(2.5MG/3ML) 30X3ML] 90 mL Sig: USE 3 ML VIA NEBULIZER EVERY 4 HOURS NEEDED FOR WHEEZING OR SHORTNESS OF BREATH Short Acting Inhaled Beta-Agonists Protocol Passed - 06/14/2022 6:52 PM Passed - Visit with relevant provider in past 12 months or upcoming 90 days Recent Visits Date Type Provider Dept 01/17/22 Office Visit Cristal Stauffer APRN, MARIAMA [facility] 11/13/21 Office Visit Cristal Stauffer APRN, MARIAMA [facility] 10/13/21 Office Visit Cristal Stauffer APRN, MARIAMA [facility] 09/05/21 Office Visit Cristal Stauffer APRN, MARIAMA [facility] 08/22/21 Office Visit Cristal Stauffer APRN, MARIAMA [facility] 08/07/21 Office Visit Cristal Stauffer APRN, MARIAMA [facility] 07/14/21 Office Visit Cristal Stauffer APRN, MARIAMA [facility] 07/04/21 Office Visit Cristal Stauffer APRN, DIVORCE ATTORNEY [facility] 06/15/21 Telemedicine Michael Zuniga APRN, MARIAMA [facility] Showing recent visits within past 365 days and meeting all other requirements Future Appointments Date Type Provider Dept 07/18/22 Appointment Cristal Stauffer APRN, MARIAMA [facility] Showing future appointments within next 90 days and meeting all other requirements documented in this encounter Plan of Treatment Not on file documented as of this encounter Visit Diagnoses Diagnosis Simple chronic bronchitis documented in this encounter Additional Health Concerns Assessment Noted Time PHQ-9 Depression Total Score: 0 07/14/20 8:25 AM CDT documented as of this encounter Care Teams Engine Cleaner Relationship Specialty Start Date End Date Cristal Stauffer APRN, MARIAMA [address] [phone] PCP - General Advanced Practice Nurse 06/07/20 09/06/23 Zohreh Woodward PAC #[address] [phone] PCP - General Physician Avionics Supervisor 02/05/25 Cristal Stauffer APRN, CNP [address] [phone] Nurse Practitioner Advanced Practice Nurse 06/06/20 03/02/24 Andrés Fan MD #[address] [phone] Consulting Physician General Surgery 12/13/21 documented as of this encounter
--- OUTSIDE RECORDS SUMMARY | 2025-08-03 08:50 | XMS_ITS | Clinical Summary ---
Author Organization [facility] Address [address] [place] [address] Phone Care Team Providers Care Scaffold Worker Name Role Phone Andrés Fan MD Unavailable Zohreh Woodward [facility] Primary Care Pro vider Allergies Active Allergy Reactions Criticality Noted Date Comments Hydrochlorothiazide Other (see Comments) 2024 Increased urination Medications Respiratory Therapy Supplies (Nebulizer) DeviceIndications: Chronic obstructive pulmonary disease, unspecified COPD type Use as directed 1 Each 1 Active Multiple Vitamins-Minerals (Prosight) TabletIndications: Alcoholic cirrhosis of liver without ascites TAKE 1 TABLET BY MOUTH DAILY 90 Tablet 2 2 Active fenofibrate (LOFIBRA) 54 MG TabletIndications: Hypertriglyceridem ia Take 1 Tablet by mouth daily. 30 Tablet 1 5 Active simvastatin (ZOCOR) 20 MG TabletIndications: Mixed hyperlipidemia Take 1 Tablet by mouth every evening. 90 Tablet 2 5 Active sildenafil citrate (VIAGRA) 100 MG TabletIndications: Erectile dysfunction, unspecified erectile dysfunction type Take 1 Tablet by mouth as needed for Erectile Dysfunction. 30 Tablet 5 Active omeprazole (PriLOSEC) 20 MG CAPSULE DELAYED RELEASEIndications :Alcoholic cirrhosis of liver without ascites Take 1 Capsule by mouth daily. 90 Capsule 1 5 Active montelukast (SINGULAIR) 10 MG TabletIndications: Chronic obstructive pulmonary disease, unspecified COPD type Take 1 Tablet by mouth every evening. 90 Tablet 3 5 Active Ventolin HFA 108 (90 Base) MCG/ACT Aerosol SolutionIndication s:Simple chronic bronchitis take 2 Puffs by inhalation every 4 hours as needed for Wheezing or Cough. 18 g 2 5 Active mometasone furo-formoterol fum (Dulera) 200-5 MCG/ACT AerosolIndications :Simple chronic bronchitis take 2 Puffs by inhalation 2 times daily. 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 90 Tablet 3 5 Active losartan (COZAAR) 100 MG Tablet Take 1 Tablet by mouth daily. 90 Tablet 3 5 Active zolpidem (AMBIEN) 5 MG TabletIndications: Psychophysiologica l insomnia Take 1 Tablet by mouth nightly as needed for Sleep. 30 Tablet 2 5 Active cetirizine (ZyrTEC) 10 MG TabletIndications: Dyspnea on exertion Take 1 Tablet by mouth daily. 5 Active carvedilol (COREG) 3.125 MG Tablet Take 1 Tablet by mouth 2 times daily. 60 Tablet 1 5 Active hydrALAZINE 50 MG Tablet TAKE 1 TABLET BY MOUTH TWICE DAILY 60 Tablet 1 5 Active Active Problems Problem Noted Date Diagnosed Date Other male erectile dysfunction 02/05/2025 Other insomnia 02/05/2025 GERD (gastroesophageal reflux disease) 5 Seasonal allergies 02/05/2025 Colon polyps 02/05/2025 Overview (02/05/2025): Next colonoscopy due 08/2025 Repeat every 5 years Hypertriglyceridemia 01/19/2022 Anxiety 09/14/2020 VICKIE (obstructive sleep apnea) 08/15/2020 Overview (02/05/2025): Non compliant Essential (primary) hypertension 08/15/2020 Tobacco dependence syndrome 06/08/2020 COPD (chronic obstructive pulmonary disease) Resolved Problems Problem Noted Date Diagnosed Date Resolved Date SOB (shortness of breath) 08/15/2020 Liver failure 06/08/2020 01/19/2022 Hyperbilirubinemia 06/08/2020 EtOH dependence 06/08/2020 01/19/2022 Hematochezia 06/08/2020 01/19/2022 Hypokalemia 06/08/2020 01/17/2022 Hyponatremia 06/08/2020 01/17/2022 Hypochloremia 06/08/2020 01/17/2022 Elevated blood-pressure read ing without diagnosis of hypertension 06/08/2020 01/19/2022 Encounters Date Type Department Care Team Description 05/04/2025 Refill [facility] Access [address] [phone] Zohreh Woodward, ELIDA Medication Refill from Last 3 Months Immunizations Immunization Administration Dates Next Due Covid-19, Mrna, Lnp-s, Pf, 3 0 Mcg/0.3 Ml Dose (SecureWave) 03/31/2021,03/10/2021 Influenza Vaccine, Quadrivalent, PF 01/15/2023,0 07/14/2021,07/06/2020 Pneumococcal Vaccine Adult - 23 Valent 0 Pneumococcal conjugate PCV20 , polysaccharide [id number] conjugate, adjuvant, PF 01/15/2023 Family History Medical History Relation Name Comments Alcohol Abuse Father Chronic Obstructive Pulmonary Disease Father Cirrhosis Father Relation Name Status Comments Father Mother KNOWS NO INFORM ATION Social History Tobacco Use Types Packs/Day Years Used Date Smoking Tobacco: Every Day Cigarettes 1 41.7 Started: 11/04/1983 Smokeless Tobacco: Never Tobacco Cessation:Ready to Q uit: Not Asked; Counseling Given: Not Answered Alcohol Use Standard Drinks/Week Comments Yes 4 (1 standard drink = 0.6 oz pur e alcohol) AUDIT-C Answer Date Recorded Frequency of Alcohol Consumption Not on file 06/09/2020 Average Number of Drinks Not on file 020 Q3: How often do you have si x or more drinks on one occasion? Daily or almost daily 06/09/2020 PHQ-2 Answer Date Recorded Total Score - Questions 1-9 1 04/0 02/2025 Sexually Active Control Partners Comments Not Currently Female Sex and Gender Information Value Date Recorded Sex Assigned at Not on file Legal Sex Male 3:28 AM HALF SOLE FITTER Gender Identity Not on file Sexual Orientation Not on file Last Filed Vital Signs Vital Sign Reading Time Taken Comments Blood Pressure 172/88 02/16/2025 10:18 AM CDT Pulse 95 02/16/2025 10:18 AM CDT Temperature 36.4 C (97.5 F) 02/16/2025 10:18 AM CDT Respiratory Rate 12 02/16/2025 10:18 AM CDT Oxygen Saturation 97% 02/16/2025 10:18 AM CDT Inhaled Oxygen Concentration - - Weight 101.2 kg (223 lb) 02/05/2025 8:26 AM CDT Height 182.9 cm (6') 02/05/2025 8:26 AM CDT Body Mass Index 30.24 02/05/2025 8:26 AM CDT Plan of Treatment Health Maintenance Due Date Last Done Comments TdaP Immunization 1968 Hepatitis B Immunization (1 of 3 - 19+ 3-dose series) 1987 Cologuard 2013 Immunochemical Fecal Occult Blood 2013 Lung Cancer Screening 2018 Zoster Immunization (1 of 2) 2018 PSA Discussion 2023 Influenza Immunization (#1) 07/05/202508/04, 01/15/2023, 07/14/2021, Additional history exists SARS-COV-2 Immunization ( season) 2025 08/15/2023, 12/03/2021, 03/31/2021, Additional history exists Colonoscopy 08/09/2025 08/09/2020 Colorectal Cancer Screening 08/09/2025 Respiratory Syncytial Virus (RSV) Immunization (Adult) (1 - 1-dose 75+ series) 2043 Hepatitis C Virus (HCV) Screening Completed 06/09/2020, 06/09/2020, 06/08/2020 Pneumococcal Immunization (50+ years) Completed 01/15/2023, 09/14/2020 Pneumococcal Immunization Combined Discontinued 01/15/2023, 09/14/2020 Human Papillomavirus (HPV) Immunization Aged Out No longer eligible based on patient's age to complete this topic Meningococcal Immunization (ACWY) Aged Out No longer eligible based on patient's age to complete this topic Rotavirus Immunization Aged Out No lo nger eligible based on patient's age to complete this topic Medical Devices Implanted Type Area Social Media Marketing Analyst Device Identifier Shelf Expiration Date Model / Serial / Lot Mesh Srg Ventralight St Sepra Echo Ps 6in Mfl Ltwt Abs Loprfl Strl Seprafilm Polyp Hydrogel [place] - [id number] Implanted:Qty: 1 on 11/28/2021 by Andrés Fan MD at [facility] IMPLANT N/A: Abdomen [employer] 08/31/2022 [id number] / [id number] / [id number] Staple Tacker Optifix At - [id number] Implanted:Qty: 1 on 11/28/2021 by Andrés Fan MD at [facility] IMPLANT N/A: Abdomen [employer] 05/01/2023 [id number] / [id number] / [id number] Procedures Procedure Name Priority Date/Time Associated Diagnosis Comments HEPATITIS PANEL ACUTE (AHP) Routine 06/09/2020 1:16 PM CDT from Last 3 Months or Most Recently Relevant to Health Maintenance Results * Hepatitis Panel Acute (AHP) (06/09/2020 1:16 PM CDT) HEPATITIS A IGM ANTIBODY NON DETECTED NON DETECTED 06/10/2020 2:42 PM CDT [facility] Comment: IGM Antibodies to HAV not detected. Does not exclude early acute or recovered HAV infection. HEP B CORE AB (IGM) NON DETECTED NON DETECTED 06/10/2020 2:42 PM CDT [facility] Comment:IGM anti-HBC not det ected. Does not exclude the possibility of exposure to or infection with HBV. HEPATITIS B SURFACE ANTIGEN NON DETECTED NON DETECTED 06/10/2020 2:42 PM CDT [facility] Comment:A nonreactive test r esult does not exclude the possibility of exposure to or infection with Hepatitis B virus. A nonreactive test result in individuals with prior exposure to hepatitis B may be due to antigen levels below the detection limit of this assay or lack of antigen reactivity to the antibodies in this assay. hepatitis C antibody 0.19 <1 S/CO 06/10/2020 2:42 PM CDT [facility] Comment: Signal/Cutoff ratio < 0.79 is Nondetected Signal/Cutoff ratio 0.80-0.99 is Grayzone Signal/Cutoff ratio > 0.99 is Detected Supplemental assays are recommended if signal/cutoff ratio is >/=1.00. Signal/cutoff ratio result >/= 5.00 is 97% predictive of positivity for recombinant immunoblot assay (RIBA) and will be reported to the [place] Department of Public Health as required. Blood Venipuncture / Unknown 06/09/2020 1:16 PM CDT 06/09/2020 1:27 PM CDT us Tobi Pope DO HEMATOLOGY ORDERABLES Final Res ult [facility] [address] [place] [address], from Last 3 Months or Most Recently Relevant to Health Maintenance Insurance MEDICAID [place] Advance Directives * Full Code (Latest Code Status on File) Date Activated Date Inactivated Comments 06/08/2020 7:01 PM 06/10/2020 2:29 PM CPR-Full Treat ment: FULL ARREST: Attempt Resuscitation/CPR wit intubation and mechanical ventilation. PRE-ARREST: Use entire range of life support measures to stabilize the patient. Care Teams Scaffold Worker Relationship Specialty Start Date End Date Zohreh Woodward, ELIDA [address] [phone] PCP - General Physician Business Process Engineer 02/05/25 Andrés Fan MD [address] [phone] Consulting Physician General Surgery 12/13/21
--- OUTSIDE RECORDS SUMMARY | 2025-08-03 08:50 | XMS_ITS | Encounter Summary ---
Author Organization [facility] Address [address] [place] [address] Phone Care Team Providers Care Lawn Care Specialist Name Role Phone Cristal Stauffer APRN, CNP Unavailable [phone]- [phone] Cristal Stauffer APRN, CNP Primary Care Provid er Andrés Fan MD Unavailable Zohreh Woodward PAC Primary Care Pro vider Reason for Referral * Radiology Services (Routine) - Closed Specialty Diagnoses / Procedures Referred By Contbere t Referred To Contact Radiology Diagnoses Pre-op testing Procedures EKG 12 LEAD Bentley Rushing MD [address] [place] [address] Phone: tel: fax: Referral ID Status Reason Start Date Expiration Date Visits Re quested Visits Authorized [id number] Closed 11/23/2021 1 1 TRO MECHANICAL SOLAR TECHNICIAN Encounter Details Date Type Department Care Team (Late st Contact Info) Description 11/23/2021 Transcribe [facility] [address] [place] [phone] Bentley Rushing MD [address] [place] [address] Pre-op testing (Primary Dx) Social History Tobacco Use Types Packs/Day Years [...] on file Legal Sex Male 3:28 AM ELECTRO MECHANICAL SOLAR TECHNICIAN Gender Identity Not on file Sexual Orientation Not on file COVID-19 Exposure Response Date Recorded In the last month, have you been in contact with someone who was confirmed or suspected to have Coronavirus / COVID-19? No / Unsure 11/25/2021 1:52 PM ELECTRO MECHANICAL SOLAR TECHNICIAN documented as of this encounter Plan of Treatment Not on file documented as of this encounter Results * SARS-COV-2 BY MOLECULAR (11/25/2021 1:56 PM ELECTRO MECHANICAL SOLAR TECHNICIAN) SARSCOV2 NOT DETECTED (Referen ce Range for this test is Not Detected ) [facility] THERMOFISHER FAST DX 11/26/2021 5:14 PM ELECTRO MECHANICAL SOLAR TECHNICIAN [facility] [facility] Comment:This test was perfor med by a RT-PCR method. Other NASOPHARYNGEAL STRUCTURE / Unknown Non-Phlebotomy Collection / Unknown 11/25/2021 1:56 PM ELECTRO MECHANICAL SOLAR TECHNICIAN 11/25/2021 2:26 PM ELECTRO MECHANICAL SOLAR TECHNICIAN Narrative [facility] [place] - 11/26/2021 5:14 PM ELECTRO MECHANICAL SOLAR TECHNICIAN Authorized Fact Sheets about this test for providers and patients are available at: https://www.fda.gov/medical-devices/diurbrkug-npphplcvtg-mbyajxo-devices/emergen -us e-authorizations Result [facility] Bentley Rushing MD MICROBIOLOGY - GENERAL ORDERA BLES Final Result Performing Organization Address City/[facility]/ZIP Co de Phone Number [facility] [address] [place] [address], [place] * EKG 12 LEAD (11/23/2021 11:58 AM ELECTRO MECHANICAL SOLAR TECHNICIAN) Ventricular Rate BPM EXTERNAL EKG Atrial Rate BPM EXTERNAL EKG P-R Interval 152 ms EXTERNAL EKG QRS Duration 94 ms EXTERNAL EKG Q-T Duration 352 ms EXTERNAL EKG QTC CALCULATION 412 ms EXTERNAL EKG P Dutton 72 degrees EXTERNAL EKG R Dutton 80 degrees EXTERNAL EKG T Dutton 82 degrees EXTERNAL EKG 11/23/2021 11:5 8 AM ELECTRO MECHANICAL SOLAR TECHNICIAN Impressions EXTERNAL EKG - 11/24/2021 1:25 PM ELECTRO MECHANICAL SOLAR TECHNICIAN Sinus rhythm ECG now within normal limits Comparison Summary: Some abnormalities no longer present Summary: Normal ECG Compared with:02/02/2021 5:46 AM Confirmed by Trevor Christie [id number] on 11/24/2021 1:25:41 PM Narrative Procedure Note Lyudmila Murray MD - 11/24/2021 IMPRESSION: Sinus rhythm ECG now within normal limits Comparison Summary: Some abnormalities no longer present Summary: Normal ECG Compared with:02/02/2021 5:46 AM Confirmed by Trevor Christie [id number] on 11/24/2021 1:25:41 PM Bentley Rushing MD IMG ECG ORDERABLES Final Resu lt EXTERNAL EKG * HEMOGLOBIN & HEMATOCRIT (H&H) (11/23/2021 11:45 AM ELECTRO MECHANICAL SOLAR TECHNICIAN) HEMOGLOBIN (HGB) 15.0 13.0 - 16.5 g/dL 11/23/2021 12:07 PM ELECTRO MECHANICAL SOLAR TECHNICIAN [facility] HEMATOCRIT (HCT) 45.1 38.0 - 50.0 % 11/23/2021 12:07 PM ELECTRO MECHANICAL SOLAR TECHNICIAN [facility] Blood Venipuncture / Unknown 11/23/2021 11:45 AM ELECTRO MECHANICAL SOLAR TECHNICIAN 11/23/2021 12:04 PM ELECTRO MECHANICAL SOLAR TECHNICIAN us Bentley Rushing MD HEMATOLOGY ORDERABLES Final R esult [facility] [address] [place] [address] documented in this encounter Visit Diagnoses Diagnosis Pre-op testing- Primary Preoperative examination, unspecified Pre-op testing Preoperative examination, unspecified documented in this encounter Additional Health Concerns Assessment Noted Time PHQ-9 Depression Total Score: 0 07/14/20 21 8:25 AM CDT documented as of this encounter Care Teams Lawn Care Specialist Relationship Specialty Start Date End Date Cristal Stauffer APRN, HEALTH EDUCATION TEACHER [address] [phone] PCP - General Advanced Practice Nurse 06/07/20 09/06/23 Zohreh Woodward PAC [address] [phone] PCP - General Physician Leasing Sales Consultant 02/05/25 Cristal Stauffer APRN, MARIAMA [address] [phone] Nurse Practitioner Advanced Practice Nurse 06/06/20 03/02/24 Andrés Fan MD #[address] [phone] Consulting Physician General Surgery 12/13/21 documented as of this encounter
--- OUTSIDE RECORDS SUMMARY | 2025-08-03 08:50 | XMS_ITS | Encounter Summary ---
Author Organization [facility] Address [address] [place] [place] [address] Phone Care Team Providers Care Hydrology Professor Name Role Phone Cristal Stauffer APRN, CNP Unavailable [phone]- [phone] Cristal Stauffer APRN, CNP Primary Care Provid er Andrés Fan MD Unavailable Zohreh Woodward PAC Primary Care Pro vider Reason for Visit * Reason Comments Medication Refill Encounter Details Date Type Department Care Team (Late st Contact Info) Description 05/16/2022 Refill [facility] - Family Medicine [facility] [address] [place] [phone] Cristal Stauffer APRN, MARIAMA [address] [phone] Medication Refill Social History Tobacco Use Types [...] on file Legal Sex Male 3:28 AM SOLAR TECH Gender Identity Not on file Sexual Orientation Not on file documented as of this encounter Miscellaneous Notes * Telephone Encounter - Mary Del Angel RN - 05/16/2022 12:08 PM CDT Per nursing clinical judgement, provider to review and approve the medication(s) order(s) if appropriate. Requested Prescriptions Pending Prescriptions Disp Refills Dulera 200-5 MCG/ACT Aerosol [Pharmacy Med Name: DULERA 200-5MCG ORAL INHALER 120INH] 13 g 5 Sig: INHALE 2 PUFFS BY MOUTH TWICE DAILY Inhaled Combinations Protocol Passed - 05/16/2022 9:04 AM Passed - Visit with relevant provider in past 12 months or upcoming 90 days Recent Visits Date Type Provider Dept 01/17/22 Office Visit Cristal Stauffer APRN, MARIAMA [facility] 11/13/21 Office Visit Cristal Stafufer APRN, MARIAMA [facility] 10/13/21 Office Visit Cristal Stauffer APRN, FEEDER SWITCHBOARD OPERATOR [facility] 09/05/21 Office Visit Cristal Stauffer APRN, FEEDER SWITCHBOARD OPERATOR [facility] 08/22/21 Office Visit Cristal Stauffer APRN, FEEDER SWITCHBOARD OPERATOR [facility] 08/07/21 Office Visit Cristal Stauffer APRN, MARIAMA [facility] 07/14/21 Office Visit Cristal Stauffer APRN, MARIAMA [facility] 07/04/21 Office Visit Cristal Stauffer APRN, FEEDER SWITCHBOARD OPERATOR [facility] 06/15/21 Telemedicine Michael Zuniga APRN, FEEDER SWITCHBOARD OPERATOR [facility] Showing recent visits within past 365 days and meeting all other requirements Future Appointments Date Type Provider Dept 07/18/22 Appointment Cristal Stauffer APRN, MARIAMA [facility] Showing future appointments within next 90 days and meeting all other requirements Passed - Active short-acting beta agonist prescription Multiple Vitamins-Minerals (Prosight) Tablet [Pharmacy Med Name: PROSIGHT TABLETS] 90 Tablet 2 Sig: TAKE 1 TABLET BY MOUTH DAILY Vitamin Supplements (Adult) Protocol Passed - 05/16/2022 9:04 AM Passed - Visit with relevant provider in past 12 months or upcoming 90 days Recent Visits Date Type Provider Dept 01/17/22 Office Visit Cristal Stauffer APRN, MARIAMA [facility] 11/13/21 Office Visit Cristal Stauffer APRN, MARIAMA [facility] 10/13/21 Office Visit Cristal Stauffer APRN, MARIAMA [facility] 09/05/21 Office Visit Cristal Stauffer APRN, MARIAMA [facility] 08/22/21 Office Visit Cristal Stauffer APRN, MARIAMA [facility] 08/07/21 Office Visit Cristal Stauffer APRN, MARIAMA [facility] 07/14/21 Office Visit Cristal Stauffer APRN, MARIAMA [facility] 07/04/21 Office Visit Cristal Stauffer APRN, MARIAMA [facility] 06/15/21 Telemedicine Michael Zuniga APRN FEEDER SWITCHBOARD OPERATOR [facility] Showing recent visits within past 365 days and meeting all other requirements Future Appointments Date Type Provider Dept 07/18/22 Appointment Cristal Stauffer APRN, FEEDER SWITCHBOARD OPERATOR [facility] Showing future appointments within next 90 days and meeting all other requirements documented in this encounter Plan of Treatment Not on file documented as of this encounter Visit Diagnoses Diagnosis Chronic obstructive pulmonary disease, unspecified COPD type Alcoholic cirrhosis of liver without ascites Alcoholic cirrhosis of liver documented in this encounter Additional Health Concerns Assessment Noted Time PHQ-9 Depression Total Score: 0 07/14/20 8:25 AM CDT documented as of this encounter Care Teams Hydrology Professor Relationship Specialty Start Date End Date Cristal Stauffer APRN, FEEDER SWITCHBOARD OPERATOR #[address] [phone] PCP - General Advanced Practice Nurse 06/07/20 09/06/23 Zohreh Woodward PAC #[address] [phone] PCP - General Physician Metal Furniture Panel Coverer 02/05/25 Cristal Stauffer, JACOB, FEEDER SWITCHBOARD OPERATOR #[address] [phone] Nurse Practitioner Advanced Practice Nurse 06/06/20 03/02/24 Andrés Fan MD #[address] [phone] Consulting Physician General Surgery 12/13/21 documented as of this encounter
--- OUTSIDE RECORDS SUMMARY | 2025-08-03 08:50 | XMS_ITS | Encounter Summary ---
Author Organization [facility] Address [address] [place] [address] Phone Care Team Providers Care Stamp Redemption Clerk Name Role Phone Cristal Stauffer APRN, CNP Unavailable +- [phone] Cristal Stauffer APRN, CNP Primary Care Provid er Andrés Fan MD Unavailable Zohreh Woodward PAC Primary Care Pro vider Reason for Visit * Reason Comments Medication Refill Encounter Details Date Type Department Care Team (Late st Contact Info) Description 01/14/2021 Refill [facility] [address] [place] [phone] Ash Grajeda MD [address] [place] [phone] Medication Refill Social History Tobacco Use Types [...] Recorded Total Score - Questions 1-9 0 09/04 Sexually Active Control Partners Comments Not Currently Female Sex and Gender Information Value Date Recorded Sex Assigned at Not on file Legal Sex Male 3:28 AM SAFETY RISK LEAD Gender Identity Not on file Sexual Orientation Not on file COVID-19 Exposure Response Date Recorded In the last month, have you been in contact with someone who was confirmed or suspected to have Coronavirus / COVID-19? No / Unsure 01/04/2021 8:41 AM SAFETY RISK LEAD documented as of this encounter Plan of Treatment Not on file documented as of this encounter Visit Diagnoses Diagnosis Chronic obstructive pulmonary disease, unspecified COPD type documented in this encounter Additional Health Concerns Infection Onset Date Last Indicated Resolved Time COVID - 19 06/02/2021 06/02/2021 06/07/2021 9:19 AM CDT COVID - 19 06/07/2021 06/07/2021 06/09/2021 8:01 AM CDT COVID - 19 10/23/2021 10/23/2021 11/12/2021 12:1 6 AM SAFETY RISK LEAD COVID - 19 Confirmed 10/23/2021 10/23/2021 022 12:16 AM SAFETY RISK LEAD Assessment Noted Time PHQ-9 Depression Total Score: 0 09/14/20 20 9:00 AM SAFETY RISK LEAD documented as of this encounter Care Teams Stamp Redemption Clerk Relationship Specialty Start Date End Date Cristal Stauffer APRN, AVIONICS SAFETY INSPECTOR [address] [facility] [address] [place] [address] PCP - General Advanced Practice Nurse 06/07/20 09/06/23 Zohreh Woodward PAC [address] [facility] [address] [place] [address] PCP - General Physician Backroom Associate 02/05/25 Cristal Stauffer APRN, AVIONICS SAFETY INSPECTOR [address] [facility] [address] [place] [address] Nurse Practitioner Advanced Practice Nurse 06/06/20 03/02/24 Andrés Fan MD [address] [facility] [address] [place] [address] Consulting Physician General Surgery 12/13/21 documented as of this encounter
--- OUTSIDE RECORDS SUMMARY | 2025-08-03 08:50 | XMS_ITS | Encounter Summary ---
Author Organization [facility] Address [address] [place] [address] Phone Care Team Providers Care Motion Designer Name Role Phone Cristal Stauffer APRN, CNP Unavailable +- [phone] Cristal Stauffer APRN, CNP Primary Care Provid er Andrés Fan MD Unavailable Zohreh Woodward PAC Primary Care Pro vider Reason for Visit * Reason Comments Medication Refill Encounter Details Date Type Department Care Team (Late st Contact Info) Description 08/26/2022 Refill [facility] - Family Medicine - [place] [address] [place] [phone] Cristal Stauffer APRN, MAR[place]AMA [address] [phone] Medication Refill Social History Tobacco Use Types [...] on file Legal Sex Male 3:28 AM SENIOR COMMUNICATIONS ENGINEER Gender Identity Not on file Sexual Orientation Not on file documented as of this encounter Miscellaneous Notes * Telephone Encounter - Swati Montenegro RN - 08/27/2022 9:43 AM CDT Medication failed the protocol, provider to review and approve the medication order if appropriate. Requested Prescriptions Pending Prescriptions Disp Refills sildenafil citrate (VIAGRA) 100 MG Tablet [Pharmacy Med Name: Sildenafil Citrate 100 MG Oral Tablet] 30 Tablet 0 Sig: TAKE 1 TABLET BY MOUTH NEEDED FOR ERECTILE DYSFUNCTION Erectile Dysfunction Medication Protocol Failed - 08/26/2022 9:44 AM Failed - Erectile dysfunction on problem list Passed - Visit with relevant provider in past 12 months or upcoming 90 days Recent Visits Date Type Provider Dept 01/17/22 Office Visit Cristal Stauffer APRN, CNP [facility] 11/13/21 Office Visit Cristal Stauffer APRN, CNP [facility] 10/13/21 Office Visit Cristal Stauffer APRN, CNP [facility] 09/05/21 Office Visit Cristal St[facility]ffer APRN[facility] [...] documented as of this encounter Care Teams Motion Designer Relationship Specialty Start Date End Date Cristal Stauffer APRN, GAS TURBINE POWERPLANT MECHANIC [address] [phone] PCP - General Advanced Practice Nurse 06/07/20 09/06/23 Zohreh Woodward PAC [address] [phone] PCP - General Physician Grocery Sacker 02/05/25 Cristal Stauffer APRN, GAS TURBINE POWERPLANT MECHANIC [address] [phone] Nurse Practitioner Advanced Practice Nurse 06/06/20 03/02/24 Andrés Fan MD #[address] [phone] Consulting Physician General Surgery 12/13/21 documented as of this encounter
== END 2025-08-03 09:00 | disposition home or self-care (01) ==
PROVIDERS: Emergency Provider Nurse Practitioner
DX: H57.89 Other specified disorders of eye and adnexa (principal); H11.31 Conjunctival hemorrhage, right eye; F17.210 Nicotine dependence, cigarettes, uncomplicated; I10 Essential (primary) hypertension; J44.9 Chronic obstructive pulmonary disease, unspecified
CPT/HCPCS: 99211; G0463

== ENCOUNTER 2025-09-28 10:48 | Outpatient (CLI) | payer OTHER, SELFPAY | END 2025-09-28 10:49 | disposition home or self-care (01) | LOC: ANHBWCAUD 10:50 | PROVIDERS: Visit Provider Physician Assistant | DX: H93.13 Tinnitus, bilateral (principal); H90.71 Mixed conductive and sensorineural hearing loss, unilateral, right ear, with unrestricted hearing on the contralateral side | CPT/HCPCS: 92557; 92567 ==